=== PATIENT | female | born 1965 | race Asian ===

== ENCOUNTER 2017-01-02 06:52 | Day surgery (SDC) | payer BC ==
[~2017-01-02 06:52] MED LIST: Lactated Ringers 1,000 ML IV SCH
--- NOTE | 2017-01-02 07:30 | PCM.PREANE ---
Preanesthetic Assessment - Anesthesia/Transfusion/Family Hx Anesthesia History: Prior Anesthesia Without Reaction Family History of Anesthesia Reaction: No Transfusion History: No Prior Transfusion(s) Intubation History: Unknown - Review of Systems General: No Symptoms Pulmonary: No Symptoms Cardiovascular: No Symptoms Gastrointestinal: Other (h/o vi;ous adenoma of rectum last year) Neurological: No Symptoms Other: Reports: None - Physical Assessment Height: 1.68 m Weight: 56.245 kg ASA Class: 2 Mental Status: Alert & Oriented x3 Airway Class: Mallampati = 2 Dentition: Reports: Partial (upper front with one tooth loose) Thyro-Mental Finger Breadths: 3 Mouth Opening Finger Breadths: 3 ROM/Head Extension: Full Lungs: Clear to Auscultation, Normal Respiratory Effort Cardiovascular: Regular Rate, Regular Rhythm - Allergies Allergies/Adverse Reactions: Allergies Allergy/AdvReac Type Severity Reaction Status Date / Time No Known Allergies Allergy Verified 10/20/14 08:47 - Blood Blood Available: No - Anesthesia Plan Pre-Op Medication Ordered: None Beta Trena: Metoprolol Med Last Dose Date: 01/01/17 Med Last Dose Time: 22:00 - Acknowledgements Anesthesia Type Planned: MAC Pt an Appropriate Candidate for the Planned Anesthesia: Yes Alternatives and Risks of Anesthesia Discussed w Pt/Guardian: Yes Pt/Guardian Understands and Agrees with Anesthesia Plan: Yes PreAnesthesia Questionnaire HEENT History: Reports: Glaucoma Other HEENT History: wears reading glasses, has top and bottom dentures Cardiovascular History: Reports: Hypertension Respiratory History: Reports: None Gastrointestinal History: Reports: Colon Polyp (vilous adenoma of rectum on colonoscopy last year), Other (See Below) (h/o helicobacter pylory) Genitourinary History: Reports: Renal Calculus Other Genitourinary History: hx kidney stone DEBONER History: Reports: , Other (See Below) (h/o uterine leyomioma) Musculoskeletal History: Reports: None Neurological History: Reports: None Psychiatric History: Reports: None Endocrine/Metabolic History: Reports: Diabetes, Type II Other Endocrine/Metabolic History: h/o thyroxicosis (multiple thyroid nodules), diet controlled type II diabetes Hematologic History: Reports: None Immunologic History: Reports: Other (See Below) (h/o herpes zoster) Oncologic (Cancer) History: Reports: None Dermatologic History: Reports: None - Past Surgical History Head Surgeries/Procedures: Reports: None GI Surgical History: Reports: Colonoscopy - SUBSTANCE USE Smoking Status *Q: Never Smoker Recreational Drug Use History: No - HOME MEDS Home Medications: Home Meds Metoprolol Succinate [Toprol XL] 100 mg PO DAILY 12/26/14 [History] Ascorbic Acid [Vitamin C] 1 tab PO DAILY 12/24/15 [History] Estrogens,Esterified [Menest] 1 tab PO DAILY 12/24/15 [History] Glucosamine/D3/Boswellia Sena [Osteo Bi-Flex Caplet] 1 tab PO DAILY 12/24/15 [ History] Bee Gyhkmn-Sdihntsj-Vmzcqiqcyk 1 tab PO ASDIRECTED 12/28/16 [History] - CURRENT (IN HOUSE) MEDS Current Meds: Current Medications Lactated Ringer's (Ringers, Lactated) 1,000 mls @ 125 mls/hr IV ASDIRECTED [facility] Last Admin: 01/02/17 07:13 Dose: 125 mls/hr
[2017-01-02] MEDS ORDERED: Propofol 200 MG/20 ML SDV ONE ×2 (07:40→10:38)
[2017-01-02] MEDS ORDERED: Lidocaine 2% 5 ML SDV ONE (07:40)
--- NOTE | 2017-01-02 08:26 | PCM.OPNOTE ---
- General Post-Op/Procedure Note Date of Surgery/Procedure: 01/02/17 Operative Procedure(s): Colonoscopy, with multiple proximal and distal rectal biopsies. Pre Op Diagnosis: Personal history of villous adenoma of the rectum one year ago Post-Op Diagnosis: Nonspecific proctitis Anesthesia Technique: MAC (ASA II) Primary Surgeon: Aram Engel Condition: Good Free Text/Narrative:: Dictation [id number] CPT CODE 12916
[2017-01-02] MEDS ORDERED: Lactated Ringers 1,000 ML IV SCH (08:30)
--- NOTE | 2017-01-02 08:40 | OR ---
SURGEON: Aram Engel M.D. DATE OF PROCEDURE: 01/02/2017 OPERATION PERFORMED: Colonoscopy with multiple proximal and distal rectal biopsies. ANESTHESIA: MAC. ASA CLASSIFICATION: II. PREOPERATIVE DIAGNOSIS: Personal history of villous adenoma of the rectum 1 year ago. POSTOPERATIVE DIAGNOSIS: Nonspecific proctitis. DESCRIPTION OF PROCEDURE: The patient was taken to the endoscopy room and positioned on the endoscopy table in the left lateral decubitus position. Time-out was called for appropriate identification of the patient and procedure. Monitored anesthesia care was provided. The colonoscope was inserted into the rectum and advanced with minimal difficulty to the cecum. The cecum was identified by internal landmarks and external pressure. The colonoscope was retroflexed in the cecum to visualize the ascending colon from below. The colonoscope was straightened and slowly withdrawn. The cecum, ascending colon, hepatic flexure, transverse colon, splenic flexure, descending colon, and sigmoid colon showed no tumors, polyps, diverticula, angiodysplasia, or evidence of inflammatory bowel disease. The rectum does show nonspecific inflammatory changes with what appeared to be superficial ulcerations. Multiple biopsies were obtained from the proximal and distal rectum. Once the colonoscope was withdrawn to the distal rectum it was retroflexed to visualize the anal orifice from above. No tumors or polyps were seen and there were no acute hemorrhoidal changes. The colonoscope was straightened, the rectum aspirated, and the colonoscope was removed. The patient tolerated the procedure well and was returned to recovery room in stable condition. DANIELLE / FREDDIE /[id number]
[2017-01-02 09:38] VITALS: BP 107/50
== END 2017-01-02 09:12 | disposition home or self-care (01) ==
LOC: MW.SDS 06:52
PROVIDERS: ATTEND Surgery
DX: K62.89 Other specified diseases of anus and rectum (principal); I10 Essential (primary) hypertension; E11.9 Type 2 diabetes mellitus without complications; Z79.899 Other long term (current) drug therapy; Z98.890 Other specified postprocedural states
CPT/HCPCS: 45380; 82962; J7120; 00810; 88305; J2704

== ENCOUNTER 2018-01-24 00:49 | Emergency (ER) | payer BC ==
[2018-01-24] MEDS ORDERED: Alum Hydrox/Mag Hydrox/Simeth 15 ML, Lidocaine 2% 5 ML PO ONE ×2 (01:02)
[2018-01-24] MEDS ORDERED: Sodium Chloride 0.9% 10 ML Syringe FLUSH PRN (01:05)
[2018-01-24] MEDS ORDERED: Sodium Chloride 0.9% 2.5 ML Syringe FLUSH PRN (01:05)
--- NOTE | 2018-01-24 01:05 | EDM.PDOC ---
ED HPI GENERAL MEDICAL PROBLEM - General Chief Complaint: Abdominal Pain Stated Complaint: ABDOMINAL PAIN Time Seen by Provider: 01/24/18 01:02 - History of Present Illness INITIAL COMMENTS - FREE TEXT/NARRATIVE: HISTORY AND PHYSICAL: History of present illness: Patient 52-year-old female with history of hypertension who presents with concern of epigastric abdominal pain this is off and on since this morning is no associated shortness of breath palpitations diaphoresis or other concerns she denies trauma. Review of systems: As per history of present illness and below otherwise all systems reviewed and negative. Past medical history: As per history of present illness and as reviewed below otherwise noncontributory. Surgical history: As per history of present illness and as reviewed below otherwise noncontributory. Social history: No reported history of drug or alcohol abuse. Family history: As per history of present illness and as reviewed below otherwise noncontributory. Physical exam: HEENT: Atraumatic, normocephalic, pupils reactive, negative for conjunctival pallor or scleral icterus, mucous membranes moist, throat clear, neck supple, nontender, trachea midline. Lungs: Clear to auscultation, breath sounds equal bilaterally, chest nontender. Heart: S1S2, regular, negative for clicks, rubs, or JVD. Abdomen: Soft, nondistended, nontender. Negative for masses or hepatosplenomegaly. Negative for costovertebral tenderness. Pelvis: Stable nontender. Genitourinary: Deferred. Rectal: Deferred. Extremities: Atraumatic, negative for cords or calf pain. Neurovascular unremarkable. Neuro: Awake, alert, oriented. Cranial nerves II through XII unremarkable. Cerebellum unremarkable. Motor and sensory unremarkable throughout. Exam nonfocal. Diagnostics: CBC CMP troponin PT/INR chest x-ray EKG CT abdomen and pelvis Therapeutics: IV O2 monitor Impression: #1 epigastric abdominal pain Definitive disposition and diagnosis as appropriate pending reevaluation and review of above. - Related Data Allergies Allergy/AdvReac Type Severity Reaction Status Date / Time No Known Allergies Allergy Verified 01/24/18 00:59 Home Meds: Home Meds Metoprolol Succinate [Toprol XL] 100 mg PO DAILY 12/26/14 [History] Past Medical History HEENT History: Reports: Glaucoma Other HEENT History: wears reading glasses, has top and bottom dentures Cardiovascular History: Reports: Hypertension Respiratory History: Reports: None Gastrointestinal History: Reports: Colon Polyp (vilous adenoma of rectum on colonoscopy last year), Other (See Below) (h/o helicobacter pylory) Genitourinary History: Reports: Renal Calculus Other Genitourinary History: hx kidney stone [employer]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: , Other (See Below) (h/o uterine leyomioma) Musculoskeletal History: Reports: None Neurological History: Reports: None Psychiatric History: Reports: None Endocrine/Metabolic History: Reports: Diabetes, Type II Other Endocrine/Metabolic History: h/o thyroxicosis (multiple thyroid nodules), diet controlled type II diabetes Hematologic History: Reports: None Immunologic History: Reports: Other (See Below) (h/o herpes zoster) Oncologic (Cancer) History: Reports: None Dermatologic History: Reports: None - Past Surgical History Head Surgeries/Procedures: Reports: None GI Surgical History: Reports: Colonoscopy Social & Family History - Caffeine Use Caffeine Use: Reports: Coffee ED ROS GENERAL - Review of Systems Review Of Systems: ROS reveals no pertinent complaints other than HPI. ED EXAM, GENERAL - Physical Exam Exam: See Below (The dictation) Course - Vital Signs Last Recorded V/S: Last Vital Signs Temp 36.2 C 01/24/18 03:24 Pulse 78 01/24/18 03:24 Resp 18 01/24/18 03:24 BP 130/71 01/24/18 03:24 Pulse Ox 99 01/24/18 03:24 - Orders/Labs/Meds Orders: Active Orders 24 hr Category Date Time Status Cardiac Education [RC] Click to Edit Care 01/24/18 01:00 Inactive Cardiac Monitoring [RC] . DIRECTED Care 01/24/18 01:00 Active EKG Documentation Completion [RC] STAT Care 01/24/18 01:00 Active Abdomen Pelvis wo Cont [CT] Stat Exams 01/24/18 01:03 Taken Chest 1V Frontal [CR] Stat Exams 01/24/18 01:02 Taken Gallbladder [Abdomen Ltd] [US] Stat Exams 01/24/18 01:56 Taken URINALYSIS W/MICROSCOPIC [UA W/MICROSCOPIC] [URIN] Stat Lab 01/24/18 01:04 Ordered Sodium Chloride 0.9% [Saline Flush] Med 01/24/18 01:05 Active 10 ml FLUSH ASDIRECTED PRN Sodium Chloride 0.9% [Saline Flush] Med 01/24/18 01:05 Active 2.5 ml FLUSH ASDIRECTED PRN Saline Lock Insert [OM.PC] Stat Oth 01/24/18 01:05 Ordered Medication Orders Sodium Chloride (Saline Flush) 10 ml FLUSH ASDIRECTED PRN PRN Reason: Keep Vein Open Sodium Chloride (Saline Flush) 2.5 ml FLUSH ASDIRECTED PRN PRN Reason: Keep Vein Open Labs: Laboratory Tests 01/24/18 01/24/18 01/24/18 Range/Units 01:00 01:00 01:00 WBC 6.98 (4.0-11.0) K/uL RBC 4.53 (4.30-5.90) M/uL Hgb 14.1 (12.0-16.0) g/dL Hct 42.1 (36.0-46.0) % MCV 92.9 (80.0-98.0) fL MCH 31.1 (27.0-32.0) pg MCHC 33.5 (31.0-37.0) g/dL RDW Std Deviation 38.8 (28.0-62.0) fl RDW Coeff of Alex 12 (11.0-15.0) % Plt Count 198 (150-400) K/uL MPV 9.80 (7.40-12.00) fL Neut % (Auto) 68.4 (48.0-80.0) % Lymph % (Auto) 24.4 (16.0-40.0) % [place] % (Auto) 5.7 (0.0-15.0) % Eos % (Auto) 1.4 (0.0-7.0) % Baso % (Auto) 0.1 (0.0-1.5) % Neut # (Auto) 4.8 (1.4-5.7) K/uL Lymph # (Auto) 1.7 (0.6-2.4) K/uL [place] # (Auto) 0.4 (0.0-0.8) K/uL Eos # (Auto) 0.1 (0.0-0.7) K/uL Baso # (Auto) 0.0 (0.0-0.1) K/uL INR 0.98 Sodium 142 (136-145) mmol/L Potassium 3.7 (3.5-5.1) mmol/L Chloride 105 (98-107) mmol/L Carbon Dioxide 31.0 (21.0-32.0) mmol/L BUN 20 H (7.0-18.0) mg/dL Creatinine 0.7 (0.6-1.0) mg/dL Est Cr Clr Drug Dosing 82.67 mL/min Estimated GFR (MDRD) > 60.0 ml/min Glucose 157 H (74-106) mg/dL Calcium 9.0 (8.5-10.1) mg/dL Total Bilirubin 0.3 (0.2-1.0) mg/dL AST 17 (15-37) IU/L ALT 23 (14-63) IU/L Alkaline Phosphatase 46 (46-116) U/L Troponin I < 0.050 (0.000-0.056) ng/mL Total Protein 7.5 (6.4-8.2) g/dL Albumin 3.8 (3.4-5.0) g/dL Globulin 3.7 H (2.0-3.5) g/dL Albumin/Globulin Ratio 1.0 L (1.3-2.8) Amylase (25-115) U/L Lipase (73-393) U/L 01/24/18 Range/Units 01:00 WBC (4.0-11.0) K/uL RBC (4.30-5.90) M/uL Hgb (12.0-16.0) g/dL Hct (36.0-46.0) % MCV (80.0-98.0) fL MCH (27.0-32.0) pg MCHC (31.0-37.0) g/dL RDW Std Deviation (28.0-62.0) fl RDW Coeff of Alex (11.0-15.0) % Plt Count (150-400) K/uL MPV (7.40-12.00) fL Neut % (Auto) (48.0-80.0) % Lymph % (Auto) (16.0-40.0) % [place] % (Auto) (0.0-15.0) % Eos % (Auto) (0.0-7.0) % Baso % (Auto) (0.0-1.5) % Neut # (Auto) (1.4-5.7) K/uL Lymph # (Auto) (0.6-2.4) K/uL [place] # (Auto) (0.0-0.8) K/uL Eos # (Auto) (0.0-0.7) K/uL Baso # (Auto) (0.0-0.1) K/uL INR Sodium (136-145) mmol/L Potassium (3.5-5.1) mmol/L Chloride (98-107) mmol/L Carbon Dioxide (21.0-32.0) mmol/L BUN (7.0-18.0) mg/dL Creatinine (0.6-1.0) mg/dL Est Cr Clr Drug Dosing mL/min Estimated GFR (MDRD) ml/min Glucose (74-106) mg/dL Calcium (8.5-10.1) mg/dL Total Bilirubin (0.2-1.0) mg/dL AST (15-37) IU/L ALT (14-63) IU/L Alkaline Phosphatase (46-116) U/L Troponin I (0.000-0.056) ng/mL Total Protein (6.4-8.2) g/dL Albumin (3.4-5.0) g/dL Globulin (2.0-3.5) g/dL Albumin/Globulin Ratio (1.3-2.8) Amylase 67 (25-115) U/L Lipase 226 (73-393) U/L Meds: Medications Generic Name Dose Route Start Last Admin Trade Name Freq PRN Reason Stop Dose Admin Sodium Chloride 10 ml 01/24/18 01:05 Saline Flush FLUSH ASDIRECTED PRN Keep Vein Open Sodium Chloride 2.5 ml 01/24/18 01:05 Saline Flush FLUSH ASDIRECTED PRN Keep Vein Open Discontinued Medications Generic Name Dose Route Start Last Admin Trade Name Freq PRN Reason Stop Dose Admin Al Hydroxide/Mg Hydroxide 15 0 ml 01/24/18 01:02 01/24/18 01:11 ml/ Lidocaine HCl 5 ml PO 01/24/18 01:03 Not Given ONETIME ONE Al Hydroxide/Mg Hydroxide 15 0 ml 01/24/18 01:06 01/24/18 01:11 ml/ Metoclopramide HCl 5 mg/ PO 01/24/18 01:07 25 each Lidocaine HCl 5 ml ONETIME ONE Administration Ketorolac Tromethamine 30 mg 01/24/18 01:55 01/24/18 02:02 Toradol IVPUSH 01/24/18 01:56 30 mg ONETIME ONE Administration Departure - Departure Time of Disposition: 03:30 Disposition: Home, Self-Care 01 Condition: Good Clinical Impression: Cholelithiasis, Biliary colic - Discharge Information *PRESCRIPTION DRUG MONITORING PROGRAM REVIEWED*: Not Applicable *COPY OF PRESCRIPTION DRUG MONITORING REPORT IN PATIENT JUSTIN: Not Applicable Referrals: PCP,None [Primary Care Provider] - Forms: ED Department Discharge Additional Instructions: The following information is given to patients seen in the emergency department who are being discharged to home. This information is to outline your options for follow-up care. We provide all patients seen in our emergency department with a follow-up referral. The need for follow-up, as well as the timing and circumstances, are variable depending upon the specifics of your emergency department visit. If you don't have a primary care physician on staff, we will provide you with a referral. We always advise you to contact your personal physician following an emergency department visit to inform them of the circumstance of the visit and for follow-up with them and/or the need for any referrals to a consulting specialist. The emergency department will also refer you to a specialist when appropriate. This referral assures that you have the opportunity for followup care with a specialist. All of these measure are taken in an effort to provide you with optimal care, which includes your followup. Under all circumstances we always encourage you to contact your private physician who remains a resource for coordinating your care. When calling for followup care, please make the office aware that this follow-up is from your recent emergency room visit. If for any reason you are refused follow-up, please contact the [facility] emergency department at and asked to speak to the emergency department charge nurse. DARCIE [facility] Specialty Care - General Surgery Professional Building [address] [place] [address], [address] [place] [address] Hydrocodone as prescribed diet as directed call general surgery for appointment above return as needed as discussed - My Orders Last 24 Hours: My Active Orders 01/24/18 01:00 Cardiac Education [RC] Click to Edit Cardiac Monitoring [RC] . DIRECTED EKG Documentation Completion [RC] STAT 01/24/18 01:02 Chest 1V Frontal [CR] Stat 01/24/18 01:03 Abdomen Pelvis wo Cont [CT] Stat 01/24/18 01:04 URINALYSIS W/MICROSCOPIC [UA W/MICROSCOPIC] [URIN] Stat 01/24/18 01:05 Sodium Chloride 0.9% [Saline Flush] 10 ml FLUSH ASDIRECTED PRN Sodium Chloride 0.9% [Saline Flush] 2.5 ml FLUSH ASDIRECTED PRN Saline Lock Insert [OM.PC] Stat 01/24/18 01:56 Gallbladder [Abdomen Ltd] [US] Stat - Assessment/Plan Last 24 Hours: My Active Orders 01/24/18 01:00 Cardiac Education [RC] Click to Edit Cardiac Monitoring [RC] . DIRECTED EKG Documentation Completion [RC] STAT 01/24/18 01:02 Chest 1V Frontal [CR] Stat 01/24/18 01:03 Abdomen Pelvis wo Cont [CT] Stat 01/24/18 01:04 URINALYSIS W/MICROSCOPIC [UA W/MICROSCOPIC] [URIN] Stat 01/24/18 01:05 Sodium Chloride 0.9% [Saline Flush] 10 ml FLUSH ASDIRECTED PRN Sodium Chloride 0.9% [Saline Flush] 2.5 ml FLUSH ASDIRECTED PRN Saline Lock Insert [OM.PC] Stat 01/24/18 01:56 Gallbladder [Abdomen Ltd] [US] Stat
[2018-01-24] MEDS ORDERED: Alum Hydrox/Mag Hydrox/Simeth 15 ML, Metoclopramide 5 MG, Lidocaine 2% 5 ML PO ONE ×3 (01:06)
[2018-01-24 01:32] LABS: CHLORIDE,CL 105 mmol/L (98-107); SODIUM,NA 142 mmol/L (136-145)
[2018-01-24] MEDS ORDERED: Ketorolac 30 MG/ML SDV IVPUSH ONE (01:55)
[2018-01-24 03:24] VITALS: BP 130/71
--- NOTE | 2018-01-24 13:00 | CT ---
EXAM DATE: 01/24/18 PATIENT'S AGE: 52 Patient: GOPAL COSTELLO Facility: [place], [place] Site . Site : 1965 Study: CT Abdomen/Pelvis w/o cont. [id number]/15/2018 1:43:12 AM Ordering Physician: Karma Hicks Final Report: INDICATION: Epigastric pain TECHNIQUE: CT abdomen and pelvis without contrast. COMPARISON: None FINDINGS: Lower chest: Unremarkable. Liver: Unremarkable. Spleen: Unremarkable. Pancreas: Unremarkable. Gallbladder and bile ducts: Mildly distended gallbladder with multiple gallstones and a solitary gallstone in the gallbladder neck. Kidneys: Unremarkable. No kidney or ureteral stones and no hydronephrosis. Adrenal glands: Unremarkable. GI tract: Colonic fecal retention. Appendix is normal. Vascular structures: Unremarkable. Lymph nodes: Unremarkable. Miscellaneous: Unremarkable. No free air or significant free fluid. Pelvic Organs: Unremarkable. Bones: Unremarkable for age. IMPRESSION: Mildly distended gallbladder with multiple gallstones. A solitary gallstone in the gallbladder neck. Correlate with right upper quadrant pain. Diffuse colonic fecal retention. Dictated by Dyllan Dobbs MD @ 01/24/2018 1:53:07 AM Dictated by: Dyllan Dobbs MD @ 01/24/2018 01:53:11 (Electronic Signature) Report Signed by Proxy. [facility]
--- NOTE | 2018-01-24 13:01 | CR ---
EXAM DATE: 01/24/18 PATIENT'S AGE: 52 Patient: GOPAL COSTELLO Facility: [place], [place] Site . Site : 1965 Study: XRay Chest [id number]/15/2018 1:45:09 AM Ordering Physician: Karma Hicks Final Report: INDICATION: epigastric pain TECHNIQUE: Chest 1 view. COMPARISON: None. FINDINGS: Cardiovascular and mediastinum: Heart size and vasculature are normal in caliber and appearance. Mediastinum is within normal limits. Lungs and pleural space: Lungs are clear. No sign of infiltrate or mass. No sign of pleural effusion. No pneumothorax. Bones and soft tissues: No significant findings. IMPRESSION: Unremarkable chest. Dictated by: Dyllan Dobbs MD @ 01/24/2018 01:46:10 (Electronic Signature) Report Signed by Proxy. [facility]
--- NOTE | 2018-01-24 13:02 | US ---
EXAM DATE: 01/24/18 PATIENT'S AGE: 52 Patient: GOPAL COSTELLO Facility: [place], [place] Site . Site : 1965 Study: US Abdomen MW [id number]/15/2018 2:47:20 AM Ordering Physician: Karma Hicks Final Report: INDICATION: Generalized abdominal pain TECHNIQUE: Ultrasound abdomen limited. Sonographic images of the right upper quadrant were obtained using womack-scale and color Doppler images. COMPARISON: None FINDINGS: Liver: Normal in size and echotexture. No masses. No intrahepatic biliary dilatation. Gallbladder: Normal bile gallstones. Normal wall thickness. No pericholecystic fluid. Common bile duct: 4-5 mm. Pancreas: Normal. The pancreatic tail is not well seen. Right kidney: 10.8 cm. Normal echotexture and cortex. No masses, stones, or hydronephrosis. IMPRESSION: Multiple mobile gallstones in an otherwise normal-appearing gallbladder. Normal common bile duct. Dictated by Dyllan Dobbs MD @ 01/24/2018 2:52:02 AM Dictated by: Dyllan Dobbs MD @ 01/24/2018 02:52:11 (Electronic Signature) Report Signed by Proxy. [facility]
== END 2018-01-24 03:45 | disposition home or self-care (01) ==
LOC: MW.ED 00:49
DX: K80.70 Calculus of gallbladder and bile duct without cholecystitis without obstruction (principal); I10 Essential (primary) hypertension; E11.9 Type 2 diabetes mellitus without complications
CPT/HCPCS: 36415; 71045; 74176; 76705; 80053; 82150; 83690; 84484; 85025; 85610; 93005; 96374; 99285; A9270; J1885; 99283

== ENCOUNTER 2023-07-17 07:41 | Day surgery (SDC) | payer BC ==
[2023-07-17] MEDS ORDERED: Naloxone 0.4 MG/ML SDV IVPUSH PRN (08:38)
[2023-07-17] MEDS ORDERED: Albuterol 0.083% 2.5 MG/3 ML Neb Soln NEB PRN (08:38)
[2023-07-17] MEDS ORDERED: Ondansetron 4 MG/2 ML SDV IVPUSH PRN ×2 (08:38→12:48)
[2023-07-17] MEDS ORDERED: Metoclopramide 10 MG/2 ML SDV IVPUSH PRN (08:38)
[2023-07-17] MEDS ORDERED: droPERidol 5 MG/2 ML SDV IVPUSH PRN (08:38)
[2023-07-17] MEDS ORDERED: HYDROmorphone 1 MG/ML Syringe IVPUSH PRN (08:38)
[2023-07-17] MEDS ORDERED: fentaNYL 50 MCG/ML SDV IVPUSH PRN (08:38)
[2023-07-17] MEDS ORDERED: Morphine 2 MG/ML SYRINGE IVPUSH PRN (08:38)
[2023-07-17] MEDS: Lactated Ringers 1,000 ML IV SCH (08:40)
[2023-07-17] MEDS ORDERED: fentaNYL 250 MCG/5 ML SDV ONE (09:30)
[2023-07-17] MEDS ORDERED: Ketamine 500 mg/10 ML MDV ONE (09:30)
[2023-07-17] MEDS ORDERED: Propofol 200 MG/20 ML SDV ONE (09:30)
[2023-07-17] MEDS ORDERED: dexmedeTOMIDine HCl 200 MCG/2 ML SDV ONE (09:33)
[2023-07-17] MEDS ORDERED: Rocuronium Bromide 50 MG/5 ML Syringe ONE ×2 (09:34→11:02)
[2023-07-17] MEDS ORDERED: Ondansetron 4 MG/2 ML SDV ONE (10:12)
[2023-07-17] MEDS ORDERED: ceFAZolin 2 GM Vial ONE (10:12)
[2023-07-17] MEDS ORDERED: Dexamethasone 4 MG/ML 5 ML MDV ONE (10:12)
[2023-07-17] MEDS: ceFAZolin 2 GM in Sodium Chloride 0.9% 50 ML IV ONE (10:15)
[2023-07-17] MEDS ORDERED: ceFAZolin 1 GM Vial ONE (10:18)
[2023-07-17] MEDS ORDERED: Ketorolac 30 MG/ML SDV ONE (10:55)
[2023-07-17] MEDS ORDERED: Sugammadex Sodium 200 MG/2 ML VIAL IV ONE (10:55)
[2023-07-17] MEDS ORDERED: Fluorescein 5 ML Vial ONE (10:55)
[2023-07-17] MEDS ORDERED: Furosemide 40 MG/4 ML VIAL ONE (10:55)
[2023-07-17] MEDS ORDERED: Tranexamic Acid 1,000 MG/10 ML Vial ONE (12:19)
[2023-07-17] MEDS ORDERED: oxyCODONE 5 MG Tab PO PRN (12:48)
[2023-07-17] MEDS ORDERED: Promethazine 25 MG/ML SDV IM PRN (12:48)
[2023-07-17] MEDS ORDERED: Acetaminophen 325 MG Tab PO PRN (12:48)
[2023-07-17] MEDS ORDERED: Glucagon,Human Recombinant 1 MG Vial IM PRN (12:54)
[2023-07-17] MEDS ORDERED: 50% Dextrose in Water 50 ML Syringe IVPUSH PRN (12:54)
[2023-07-17] MEDS: Acetaminophen 1,000 MG in Premix Bag 1 BAG IV PRN (16:20)
[2023-07-17] MEDS: Insulin Aspart 100 Units/ML 3 ML Pen SUBCUT SCH (17:50)
[2023-07-17] MEDS: metFORMIN 500 MG Tab.ER PO SCH (17:53)
[2023-07-17] MEDS: Latanoprost 0.005% Ophth Soln 2.5 ML Bottle EYEBOTH SCH (21:58)
[2023-07-17] MEDS: Lisinopril 5 MG Tab PO SCH (21:58)
[2023-07-18 01:47] VITALS: PULSE 67
[2023-07-18] MEDS ORDERED: Metoprolol Succinate 100 MG Tab.ER PO SCH (09:00)
[2023-07-18] MEDS: atorvaSTATin 20 MG Tab PO SCH (09:00)
[2023-07-18] MEDS ORDERED: Ketorolac 30 MG/ML SDV ONE (09:58)
[2023-07-18] MEDS ORDERED: Ketorolac 30 MG/ML SDV IVPUSH SCH (10:00)
[2023-07-18 11:13] LABS: CALCIUM 7.9 mg/dL (8.5-10.1); CARBON DIOXIDE,CO2 27.1 mmol/L (21.0-32.0); CREATININE 0.8 mg/dL (0.6-1.0); EST CRCL DRUG DOSING (CG) 64.58 mL/min; POTASSIUM,K 3.7 mmol/L (3.5-5.1)
[2023-07-18 11:17] LABS: BASOPHILS ABSOLUTE AUTO 0.01 K/uL (0.00-0.20); BASOPHILS PERCENT AUTO 0.1 % (0.0-1.0); HEMATOCRIT 33.6 % (37.0-47.0); HEMOGLOBIN 11.8 g/dL (12.0-16.0); IMMATURE GRAN ABSOLUTE AUTO 0.02 K/uL (0.00-0.05); IMMATURE GRAN PERCENT AUTO 0.2 % (0.0-0.4); LYMPHOCYTES ABSOLUTE AUTO 1.12 K/uL (1.00-4.80); LYMPHOCYTES PERCENT AUTO 10.5 % (24.0-44.0); MEAN CORPUSCULAR HEMOGLOBIN 30.8 pg (28.0-32.0); MEAN CORPUSCULAR HGB CONC 35.1 g/dL (32.0-36.0); MEAN CORPUSCULAR VOLUME 87.7 fL (83.0-99.0); MEAN PLATELET VOLUME 10.7 fL (9.4-12.3); MONOCYTES ABSOLUTE AUTO 0.65 K/uL (0.00-0.80); MONOCYTES PERCENT AUTO 6.1 % (0.0-8.0); NEUTROPHILS ABSOLUTE AUTO 8.89 K/uL (1.80-7.70); NEUTROPHILS PERCENT AUTO 83.1 % (41.0-71.0); PLATELET COUNT,PLT 193 K/uL (150-400); RED BLOOD CELL COUNT 3.83 M/uL (4.10-5.30); WHITE BLOOD CELL COUNT,WBC 10.69 K/uL (3.9-11.3)
[2023-07-18 12:01] VITALS: BP 120/72
== END 2023-07-18 15:30 | disposition home or self-care (01) ==
LOC: MW.SDS 07:41 → MW.OB 13:52 → MW.SDS 07-18 15:30
PROVIDERS: ATTEND Obstetrics & Gynecology
DX: D25.9 Leiomyoma of uterus, unspecified (principal); N81.3 Complete uterovaginal prolapse; N36.41 Hypermobility of urethra; N89.4 Leukoplakia of vagina; I10 Essential (primary) hypertension; E11.9 Type 2 diabetes mellitus without complications; E78.5 Hyperlipidemia, unspecified; Z79.84 Long term (current) use of oral hypoglycemic drugs; Z79.899 Other long term (current) drug therapy
CPT/HCPCS: 36415; 57260; 57288; 58260; 80048; 82947; 85025; 86850; 86900; 86901; A9270; C1771; J0131; J0690; J1100; J1815; J1885; J1940; J2704; J3010; J3490; J7030; J7120; 00944; J2405